=== PATIENT | male | born 1970 | race Caucasian/White ===

== ENCOUNTER 2019-10-02 19:52 | Emergency (ER) | payer BC, OTHER ==
[2019-10-02 21:13] VITALS: O2SAT 96
[2019-10-02] MEDS ORDERED: KETOROLAC TROMETHAMINE INJ 60 MG/2 ML VIAL IM ONE (21:51)
--- NOTE | 2019-10-02 22:15 | RAD ---
EXAM DESCRIPTION: Humerus, right CLINICAL HISTORY: 49 years Male, Pain COMPARISON: None. FINDINGS: No fracture or dislocation. Bone mineralization is normal. Joint spaces are preserved. Soft tissues are unremarkable. IMPRESSION: No acute osseous abnormality. Electronically signed by: Larry Jones DO 10/02/2019 10:14 PM CDT
--- NOTE | 2019-10-02 23:03 | ED.PDOC ---
History of Present Illness - General Chief Complaint: Upper Extremity Injury Stated Complaint: Rt upper arm pain Time Seen by Provider: 10/02/19 21:50 - History of Present Illness Allergies/Adverse Reactions: Allergies NO KNOWN ALLERGY Allergy (Unverified 02/04/13 18:34) Home Medications: Ambulatory Orders Amoxicillin & Pot Clavulanate [Augmentin] 875 mg PO BID #20 tab 01/18/15 Ondansetron Tab [Zofran Tab] 4 mg PO Q6HRS PRN #15 tab 01/18/15 Tramadol HCl 50 mg PO BEDTIME PRN #10 tab 01/18/15 Gabapentin 100 mg PO TID #30 cap 10/02/19 Prednisone 20 mg PO DAILY #12 tab 10/02/19 Past Medical History (General) - Patient Medical History Hx Stroke: Yes Hx Gastroesophageal Reflux: Yes Surgical History: appendectomy, other - Vaccination History Hx Tetanus, Diphtheria Vaccination: No Hx Influenza Vaccination: Yes - Social History Hx Tobacco Use: Yes Hx Alcohol Use: No Family Medical History - Family History Father Family History: Unknown Departure - Departure Clinical Impression: Right upper limb pain Time of Disposition: 23:01 Disposition: Discharge to Home or Self Care Condition: Good Departure Forms: ED Discharge - Pt. Copy, Patient Portal Self Enrollment Prescriptions: Gabapentin 100 mg PO TID #30 cap Prednisone 20 mg PO DAILY #12 tab Home Medications: Ambulatory Orders Amoxicillin & Pot Clavulanate [Augmentin] 875 mg PO BID #20 tab 01/18/15 Ondansetron Tab [Zofran Tab] 4 mg PO Q6HRS PRN #15 tab 01/18/15 Tramadol HCl 50 mg PO BEDTIME PRN #10 tab 01/18/15 Gabapentin 100 mg PO TID #30 cap 10/02/19 Prednisone 20 mg PO DAILY #12 tab 10/02/19
[2019-10-02 23:25] VITALS: BP 139/91; TEMP 97.9
--- NOTE | 2019-10-03 00:03 | ED.PDOC ---
History of Present Illness - General Chief Complaint: Upper Extremity Injury Stated Complaint: Rt upper arm pain Time Seen by Provider: 10/02/19 21:50 Source: patient Additional Information: 49yo M with right upper arm pain onset 1 week ago. The pain is focal to the posterior and lateral aspect of the arm. It is constant and aching in quality. No change in pain with movement. No hx of injury. No swelling to the area or the extremity as a whole. He reports normal sensation and strength in the hand. No other reported issues. - History of Present Illness Occurred: last week Method of Injury: unknown Improving Factors: nothing Worsening Factors: nothing Allergies/Adverse Reactions: Allergies NO KNOWN ALLERGY Allergy (Unverified 02/04/13 18:34) Home Medications: Ambulatory Orders Amoxicillin & Pot Clavulanate [Augmentin] 875 mg PO BID #20 tab 01/18/15 RX: Ondansetron Tab [Zofran Tab] 4 mg PO Q6HRS PRN #15 tab 01/18/15 RX: Tramadol HCl 50 mg PO BEDTIME PRN #10 tab 01/18/15 RX: Gabapentin 100 mg PO TID #30 cap 10/02/19 RX: Prednisone 20 mg PO DAILY #12 tab 10/02/19 Review of Systems - Review of Systems Constitutional: Denies: chills, fever EENTM: Denies: no symptoms reported Respiratory: Denies: no symptoms reported Cardiology: Denies: chest pain, palpitations Gastrointestinal/Abdominal: States: no symptoms reported Genitourinary: States: no symptoms reported Musculoskeletal: States: muscle pain. Denies: back pain, joint pain, joint swelling, neck pain Skin: Denies: change in color, lesions Neurological: Denies: headache, numbness, weakness Past Medical History (General) - Patient Medical History Hx Stroke: Yes Hx Gastroesophageal Reflux: Yes Surgical History: appendectomy, other - Vaccination History Hx Tetanus, Diphtheria Vaccination: No Hx Influenza Vaccination: Yes - Social History Hx Tobacco Use: Yes Hx Alcohol Use: No Family Medical History - Family History Father Family History: Unknown Physical Exam - Physical Exam General Appearance: Alert, Comfortable Neck: non-tender, full range of motion, supple Cardiovascular/Respiratory: regular rate, rhythm, no M/R/G, normal peripheral pulses Abdominal Exam: non-tender Back Exam: normal inspection, no CVA tenderness, no vertebral tenderness Shoulder Exam: normal inspection, no evidence of injury, normal ROM, pain - Mild focal tenderness to the posterior/lateral upper arm. No skin changes, no swelling or edema. Nl ROM. Elbow/Forearm Exam: normal inspection, non-tender, normal ROM Wrist Exam: normal inspection, non-tender, normal ROM Hand Exam: normal inspection, non-tender, normal ROM Neuro/Tendon: normal sensation, normal motor functions, no evidence tendon injury Mental Status: alert, oriented x 3 Skin Exam: normal color, warm/dry Progress - Progress Progress: DDX: neuropathy, tendonitis, tumor, pathological fracture, sprain, strain; lower suspicion for DVT, infection. 10/03/19 00:07 The cause of the patient' symptoms is unclear at this time. His discomfort is focal without real significant exam findings. He has normal ROM, no swelling, no injury. Pain may be neuropathic in nature. We will try targeted treatment. Results discussed with patient at length. Return warning given. It was a pleasure to treat this patient today. 10/03/19 00:10 Stephen Kline MD. #[id number] - EKG/XRAY/CT XRAY: Upper Arm Xray Comments: No acute findings. See formal read. Departure - Departure Clinical Impression: Right upper limb pain Disposition: Discharge to Home or Self Care Condition: Good Departure Forms: ED Discharge - Pt. Copy, Patient Portal Self Enrollment Instructions: DI for Arm Pain Prescriptions: RX: Gabapentin 100 mg PO TID #30 cap RX: Prednisone 20 mg PO DAILY #12 tab Home Medications: Ambulatory Orders Amoxicillin & Pot Clavulanate [Augmentin] 875 mg PO BID #20 tab 01/18/15 RX: Ondansetron Tab [Zofran Tab] 4 mg PO Q6HRS PRN #15 tab 01/18/15 RX: Tramadol HCl 50 mg PO BEDTIME PRN #10 tab 01/18/15 RX: Gabapentin 100 mg PO TID #30 cap 10/02/19 RX: Prednisone 20 mg PO DAILY #12 tab 10/02/19
== END 2019-10-02 23:25 | disposition home or self-care (01) ==
LOC: ER 19:52
DX: M79.621 Pain in right upper arm (principal); K21.9 Gastro-esophageal reflux disease without esophagitis; Z86.73 Personal history of transient ischemic attack (TIA), and cerebral infarction without residual deficits; Z87.891 Personal history of nicotine dependence
CPT/HCPCS: 73060; J1885